=== PATIENT | female | born 1970 | race Caucasian/White ===

== ENCOUNTER → 2017-01-27 | Outpatient (CLI) | payer BC ==
--- NOTE | 2017-01-27 08:19 | Diagnostic Imaging Report ---
Bilateral diagnostic mammogram. CAD is utilized. Comparison exam of 08/26/2016, is reviewed. INDICATION: Asymmetry along the posterior deep aspect of the right breast. FINDINGS: The breasts are composed of heterogeneously dense parenchyma which may decrease mammographic sensitivity. The previously seen asymmetry is less prominent along the posterior central aspect of the right CC projection. Also previously seen asymmetry along the posterior aspect of the upper zone in the right MLO view is less prominent. MRI was performed last year and demonstrated no suspicious lesion. The findings are likely secondary to summation artifact of the dense background parenchyma. There is no developing mass or suspicious calcifications identified. IMPRESSION: Dense breasts with no definite underlying lesion seen. ACR BI-RADS Category 2: Benign findings. Result letter will be mailed to the patient. Note: At least 10% of breast cancer is not imaged by mammography. Dictated by: Dictated on workstation # [id number]
== END ==
LOC: RAD 07:30
PROVIDERS: ATTEND Nurse Practitioner Adult Health
DX: R92.8 Other abnormal and inconclusive findings on diagnostic imaging of breast (principal); R92.2 Inconclusive mammogram
CPT/HCPCS: 77066

== ENCOUNTER → 2018-03-16 | Outpatient (CLI) | payer BC ==
--- NOTE | 2018-03-16 13:39 | Diagnostic Imaging Report ---
EXAM: Digital mammogram below screening with 3D tomosynthesis. The current study was also evaluated with a Computer Aided Detection (CAD) system. COMPARISON: This study was compared to the prior exams of 01/27/2017, 08/26/2016 and 01/04/2016 and 06/12/2014. Currently, there are no complaints. FINDINGS: The fibroglandular tissue in both breasts is dense. This does limit the sensitivity of this exam. Overall, there does not appear to have been any significant change when compared to the prior study. No primary or secondary sign of malignancy is noted. IMPRESSION: There is no radiographic evidence for malignancy ACR BI-RADS Category 1: Negative. Result letter will be mailed to the patient. Note: At least 10% of breast cancer is not imaged by mammography. Dictated by: Dictated on workstation # [id number]
== END ==
LOC: RAD 07:22
PROVIDERS: ATTEND Nurse Practitioner Family
DX: Z12.31 Encounter for screening mammogram for malignant neoplasm of breast (principal); N60.19 Diffuse cystic mastopathy of unspecified breast
CPT/HCPCS: 77067

== ENCOUNTER → 2019-08-29 | Outpatient (CLI) | payer BC, OTHER ==
--- NOTE | 2019-08-29 14:36 | Diagnostic Imaging Report ---
INDICATION: Fibrocystic disease. CORRELATION is made with prior mammogram from 03/16/2018 and 01/27/2017. 2-D and 3-D bilateral diagnostic mammography was performed with CAD. Both breasts again demonstrate marked parenchymal heterogeneity and increased density, limiting the sensitivity of mammography. No dominant mass or malignant-appearing microcalcifications are seen. Axillae are unremarkable. IMPRESSION: BI-RADS Category 1. No mammographic features suspicious for malignancy are identified. ACR BI-RADS Category 1: Negative. Result letter will be mailed to the patient. Note: At least 10% of breast cancer is not imaged by mammography. Dictated by: Dictated on workstation # [id number]
== END ==
LOC: RAD 13:55
PROVIDERS: ATTEND Pediatrics
DX: N60.01 Solitary cyst of right breast (principal); N60.02 Solitary cyst of left breast
CPT/HCPCS: 77066

== ENCOUNTER → 2021-03-03 | Outpatient (CLI) | payer OTHER ==
--- NOTE | 2021-03-03 09:10 | Diagnostic Imaging Report ---
INDICATION: Routine screening. COMPARISON: 08/29/2019 and 03/16/2018. TECHNIQUE: 2D and 3D bilateral screening mammography was performed with CAD. FINDINGS: Both breasts demonstrate marked parenchymal heterogeneity and increased density, limiting the sensitivity of mammography. The parenchymal pattern is stable. No mass or malignant appearing microcalcifications are seen. The axillae are unremarkable. IMPRESSION: No mammographic features suspicious for malignancy are identified. ACR BI-RADS Category 1: Negative. Result letter will be mailed to the patient. Note: At least 10% of breast cancer is not imaged by mammography. Dictated by: Dictated on workstation # [id number]
== END ==
LOC: RAD 06:57
PROVIDERS: ATTEND Pediatrics
DX: Z12.31 Encounter for screening mammogram for malignant neoplasm of breast (principal)
CPT/HCPCS: 77063; 77067

== ENCOUNTER → 2023-02-13 | Outpatient (CLI) | payer OTHER ==
--- NOTE | 2023-02-13 10:05 | Diagnostic Imaging Report ---
INDICATION: Bilateral 3-D screening mammograms COMPARISON DATES: 03/03/2021 and 08/29/2019 There is high breast parenchymal density bilaterally. No new dominant mass or suspicious calcifications identified. Overall, there is no evidence of adverse change. IMPRESSION: Category 1, negative mammogram. High breast parenchymal density limits mammographic sensitivity. Continued physical examination and annual mammographic followup are recommended. ACR BI-RADS Category 1: Negative. Result letter will be mailed to the patient. Note: At least 10% of breast cancer is not imaged by mammography. Dictated by: Dictated on workstation # [id number]
== END ==
LOC: RAD 07:03
PROVIDERS: ATTEND Pediatrics
DX: Z12.31 Encounter for screening mammogram for malignant neoplasm of breast (principal); N64.89 Other specified disorders of breast
CPT/HCPCS: 77063; 77067